=== PATIENT | male | born 1940 | race Caucasian/White ===

== ENCOUNTER 2017-05-26 13:04 | Emergency (ER) | payer BC ==
[2017-05-26 13:12] VITALS: BP 122/74; PULSE 57; TEMP 98.1; BMI 36.5
--- NOTE | 2017-05-26 14:16 | PDOC ---
History of Present Illness - General Chief Complaint: Rash Stated Complaint: RASH Time Seen by Provider: 05/26/17 13:43 History Source: Patient Exam Limitations: No Limitations - History of Present Illness Initial Comments: 05/26/17 14:10 This is a 76yo man with PMH colon CA s/p resection, HTN who presents with generalized itching and rash which worsens overnight for the past 5 days. He states he has tried taking hydrocortisone cream prior to going to sleep with minimal relief. The itching prevents the patient from getting a full nights sleep. He denies fevers. Patient is unsure if he has changed his soaps, shampoos , conditioner, detergents as he shops for what is on sale and is not loyal to any particular brand. Patient is not sure if he has changed anything recently. PMD- Din PMH- see HPI PSH- see HPI Nkda ETOH- rarely Tob- quit>25 years ago illicits- denies Timing/Duration: reports: other (5 days) Past History - Past Medical History Allergies/Adverse Reactions: Allergies Allergy/AdvReac Type Severity Reaction Status Date / Time No Known Allergies Allergy Verified 05/26/17 13:09 Home Medications: Ambulatory Orders Lisinopril [Prinivil] 20 mg PO DAILY 05/20/12 Pravastatin Sodium 40 mg PO DAILY 05/20/12 Aspirin [ASA -] 81 mg PO DAILY 11/10/15 Cholecalciferol (Vitamin D3) [Vitamin D] 1 tab PO ASDIR 11/10/15 [place]-3 Fatty Acids [Fish Oil] 300 mg PO DAILY 11/10/15 Hydrocortisone 2.5% Lotion [Hytone 2.5% Lotion -] 1 applic TP BID #1 bottle 11/10 Anemia: Yes Asthma: No Cancer: Yes (COLON CANCER) Cardiac Disorders: No CVA: No COPD: No CHF: No Dementia: No Diabetes: Yes (BORDERLINE) GI Disorders: Yes Disorders: No HTN: Yes Hypercholesterolemia: Yes Liver Disease: No Seizures: No Thyroid Disease: No - Surgical History Abdominal Surgery: Yes (ABDOMINAL REPAIR{ PIPE THROUGH ABDOMEN}) Appendectomy: No Cardiac Surgery: No Cholecystectomy: No GI Surgery: Yes (resection secondary to cancer) Lung Surgery: No Neurologic Surgery: No Orthopedic Surgery: No - Immunization History Immunization Up to Date: Yes - Psycho/Social/Smoking Cessation Hx Anxiety: No Suicidal Ideation: No Smoking Status: No Smoking History: Former smoker Have you smoked in the past 12 months: No Number of Cigarettes Smoked Daily: 0 If you are a former smoker, when did you quit?: 30 years ago Information on smoking cessation initiated: No Hx Alcohol Use: No Drug/Substance Use Hx: No Substance Use Type: None Hx Substance Use Treatment: No Review of Systems - Review of Systems Able to Perform ROS?: Yes Is the patient limited [place]ymraes proficient: No Constitutional: No: Symptoms Reported HEENTM: No: Symptoms Reported Respiratory: No: Symptoms reported Cardiac (ROS): No: Symptoms Reported ABD/GI: No: Symptoms Reported : No: Symptoms Reported Musculoskeletal: No: Symptoms Reported Integumentary: Yes: See HPI Neurological: No: Symptoms reported *Physical Exam - Vital Signs Last Vital Signs Temp Pulse Resp BP Pulse Ox 98.1 F 57 L 18 122/74 100 05/26/17 13:05/26/17 13:05/26/17 13:05/26/17 13:05/26/17 13:09 - Physical Exam General Appearance: Yes: Appropriately Dressed. No: Apparent Distress HEENT: positive: EOMI, DC, Normal ENT Inspection Neck: positive: Trachea midline, Supple Respiratory/Chest: positive: Lungs Clear, Normal Breath Sounds. negative: Respiratory Distress Cardiovascular: positive: Regular Rhythm, Regular Rate, S1, S2. negative: Edema , JVD, Murmur Gastrointestinal/Abdominal: positive: Normal Bowel Sounds, Soft. negative: Tender, Organomegaly Musculoskeletal: positive: Normal Inspection. negative: CVA Tenderness Extremity: positive: Normal Capillary Refill, Normal Inspection Integumentary: positive: Normal Color, Dry, Warm Neurologic: positive: oxygraph operator II-XII NML intact, Fully Oriented, Alert, Normal Mood/ Affect, Normal Response, Motor Strength 5/5 Medical Decision Making - Medical Decision Making 05/26/17 14:16 A: This is a 76yo man with PMH colon CA s/p resection, HTN who presents with generalized itching and rash which worsens overnight for the past 5 days. He states he has tried taking hydrocortisone cream prior to going to sleep with minimal relief. The itching prevents the patient from getting a full nights sleep. He denies fevers. Patient is unsure if he has changed his soaps, shampoos , conditioner, detergents as he shops for what is on sale and is not loyal to any particular brand. Patient is not sure if he has changed anything recently. No rash seen on exam. At present patient denies itching. Scratch avery are present on upper back. P: Pruritis - hydrocortisone 2.5% ointment bid - benadryl or zyrtec bid *DC/Admit/Observation/Transfer Diagnosis at time of Disposition: Generalized pruritus - Discharge Dispostion Disposition: HOME Condition at time of disposition: Stable Admit: No - Prescriptions Prescriptions: Hydrocortisone 2.5% Lotion [Hytone 2.5% Lotion -] 1 applic TP BID #1 bottle - Referrals Referrals: Aicha Bernabe MD [Primary Care Provider] - - Patient Instructions Additional Instructions: Take benadryl or cetirizine for itching as directed by clinical rn manager's instructions. Pick 1 brand of soap, shampoo, conditioner, laundry detergent and fabric softener and stick with it. Use hydrocortisone cream twice daily as needed for itching. Return to ER for increased itching, pain, rashes, fevers or any other concerns. Thank you for choosing us to provide your emergent health care needs. - Post Discharge Activity
== END 2017-05-26 14:31 | disposition home or self-care (01) ==
LOC: JERFT 13:04
DX: L29.8 Other pruritus (principal); I10 Essential (primary) hypertension; E78.00 Pure hypercholesterolemia, unspecified; E11.9 Type 2 diabetes mellitus without complications; Z85.038 Personal history of other malignant neoplasm of large intestine
CPT/HCPCS: 99281-25

== ENCOUNTER 2017-06-30 23:11 | Emergency (ER) | payer BC ==
--- NOTE | 2017-06-30 23:25 | PDOC ---
History of Present Illness <Edy Webster - Last Filed: 07/01/17 05:50> - History of Present Illness Initial Comments: 76 year old male with PMH of hypertension, hyperlipidemia, and colon cancer (s/ p resection years prior) presenting inebriated by EMS with fall and trauma to the right frontal scalp. He fell from standing and hit his head on the side of a tire in the rear of his house. He recalls the fall. The patient is actively inebriated and is slurring his speech but able to answers questions appropriately. Does not admit to the exact reason for his current inebriation but simply states that he is "going through some things". Per conversation with his son over the phone, Julian has not drank in five years but started recently because of a diagnosis of pancreatic cancer of his son. Denies any LOC or acute pain. According to the patietn he does not know why he is here and would like to go home. 07/01/17 00:39 <Sergey Mcclure - Last Filed: 07/01/17 06:47> - General Stated Complaint: INTOXICATION Time Seen by Provider: 06/30/17 23:16 Past History <Edy Webster - Last Filed: 07/01/17 05:50> - Past Medical History Anemia: Yes Asthma: No Cancer: Yes (COLON CANCER) Cardiac Disorders: No CVA: No COPD: No CHF: No Dementia: No Diabetes: Yes (BORDERLINE) GI Disorders: Yes Disorders: No HTN: Yes Hypercholesterolemia: Yes Liver Disease: No Seizures: No Thyroid Disease: No - Surgical History Abdominal Surgery: Yes (ABDOMINAL REPAIR{ PIPE THROUGH ABDOMEN}) Appendectomy: No Cardiac Surgery: No Cholecystectomy: No GI Surgery: Yes (resection secondary to cancer) Lung Surgery: No Neurologic Surgery: No Orthopedic Surgery: No - Immunization History Immunization Up to Date: Yes - Suicide/Smoking/Psychosocial Hx Smoking Status: No Smoking History: Former smoker Have you smoked in the past 12 months: No Number of Cigarettes Smoked Daily: 0 If you are a former smoker, when did you quit?: 30 years ago Hx Alcohol Use: No Drug/Substance Use Hx: No Substance Use Type: None Hx Substance Use Treatment: No <Sergey Mcclure - Last Filed: 07/01/17 06:47> - Past Medical History Allergies/Adverse Reactions: Allergies Allergy/AdvReac Type Severity Reaction Status Date / Time No Known Allergies Allergy Verified 07/01/17 00:29 Home Medications: Ambulatory Orders Lisinopril [Prinivil] 20 mg PO DAILY 05/20/12 Pravastatin Sodium 40 mg PO DAILY 05/20/12 Aspirin [ASA -] 81 mg PO DAILY 11/10/15 Cholecalciferol (Vitamin D3) [Vitamin D] 1 tab PO ASDIR 11/10/15 [place]-3 Fatty Acids [Fish Oil] 300 mg PO DAILY 11/10/15 Hydrocortisone 2.5% Lotion [Hytone 2.5% Lotion -] 1 applic TP BID #1 bottle 11/10 Review of Systems - Review of Systems Constitutional: No: Chills, Diaphoresis, Fever, Loss of Appetite HEENTM: No: Blurred Vision Respiratory: No: Cough, Shortness of Breath Cardiac (ROS): No: Chest Pain, Palpitations, Chest Tightness ABD/GI: No: Diarrhea, Nausea, Vomiting : No: Burning, Dysuria, Discharge Musculoskeletal: No: Back Pain, Muscle Pain Integumentary: Yes: Bruising, Lesions. No: Change in Color Neurological: No: Headache, Numbness, Paresthesia, Tingling <Sergey Mcclure - Last Filed: 07/01/17 06:47> *Physical Exam - Vital Signs Last Vital Signs Temp Pulse Resp BP Pulse Ox 97.9 F 66 14 109/57 95 07/01/17 00:30 07/01/17 00:30 07/01/17 00:30 07/01/17 00:30 07/01/17 00:30 <Edy Webster - Last Filed: 07/01/17 05:50> - Physical Exam General Appearance: Yes: Nourished, Appropriately Dressed, Disheveled, Alcohol on Breath, Intoxicated. No: Apparent Distress HEENT: positive: EOMI, DC, Normal ENT Inspection, Other (Abrasion over right temporal scalp) Neck: positive: Trachea midline, Normal Thyroid, Supple. negative: Tender, Rigid Respiratory/Chest: positive: Lungs Clear, Normal Breath Sounds. negative: Chest Tender, Respiratory Distress Cardiovascular: positive: Regular Rhythm, Regular Rate, S1, S2. negative: Edema , JVD, Murmur Gastrointestinal/Abdominal: positive: Normal Bowel Sounds, Flat, Soft. negative : Tender Integumentary: positive: Normal Color, Dry, Warm Neurologic: positive: certified addiction counselor II-XII NML intact, Fully Oriented, Alert <Julianna Mcclureекатеринаmanuel - Last Filed: 07/01/17 06:47> Medical Decision Making - Medical Decision Making 76 year old male with inebriation and CT head negative. Has since sobered up. Will DC home. 07/01/17 06:47 <RenArmandosharri - Last Filed: 07/01/17 06:47> *DC/Admit/Observation/Transfer - Discharge Dispostion Admit: No <Edy Webster - Last Filed: 07/01/17 05:50> <RenArmandosharri - Last Filed: 07/01/17 06:47> Diagnosis at time of Disposition: Head injury Qualifiers: Encounter type: initial encounter Qualified Code(s): S09.90XA - Unspecified injury of head, initial encounter Alcohol intoxication Qualifiers: Complication of substance-induced condition: uncomplicated Qualified Code(s): F10.920 - Alcohol use, unspecified with intoxication, uncomplicated - Referrals Referrals: [facility] [Provider Group] - Patient Instructions Printed Discharge Instructions: DI for Closed Head Injury Additional Instructions: Return to the emergency department immediately with ANY new, persistent or worsening symptoms. You MUST call and follow up with your doctor tomorrow for further evaluation of your symptoms. Results were discussed with you. Please make sure your doctor reviews the results of your emergency evaluation. If you had any xrays during your visit, it was read preliminarily by myself, a Radiologist will review it and if there are any additional findings we will call you. Print Language: WOLOF
[2017-07-01 00:31] VITALS: BP 109/57; PULSE 66; TEMP 97.9; BMI 36.0
--- NOTE | 2017-07-01 00:44 | PDOC ---
Attending Attestation - Resident Resident Name: Sergey Mcclure - ED Attending Attestation I have performed the following: I have examined & evaluated the patient, The case was reviewed & discussed with the resident, I agree w/resident's findings & plan, Exceptions are as noted - HPI HPI: 07/01/17 00:57 76y M presents s/p fall and intoxication. pt was BIBEMS s/p fall from standing, strking his head, w/o LOC, pt without complaints but does smell of alcohol with slurred speech. pt with nos igns of trauma to his head, there is some abrasions on his arm without focal tenderness. will obtain ct head due to hx of etoh intoxication, will observe until no longer intoxicated - Physicial Exam PE: 07/01/17 00:59 see above - Medical Decision Making 07/01/17 00:59 see above
== END 2017-07-01 06:54 | disposition home or self-care (01) ==
LOC: JER 23:11
DX: F10.920 Alcohol use, unspecified with intoxication, uncomplicated (principal); Z87.891 Personal history of nicotine dependence; J45.909 Unspecified asthma, uncomplicated; I10 Essential (primary) hypertension; E78.00 Pure hypercholesterolemia, unspecified
CPT/HCPCS: 70450-TC; 99281-25

== ENCOUNTER 2018-07-01 19:04 | Emergency (ER) | payer BC ==
--- NOTE | 2018-07-01 19:14 | PDOC ---
Rapid Medical Evaluation Time Seen by Provider: 07/01/18 19:07 Medical Evaluation: Allergies Allergy/AdvReac Type Severity Reaction Status Date / Time No Known Allergies Allergy Verified 07/01/17 00:29 07/01/18 19:07 I have performed a brief in-person evaluation of this patient. The patient presents with a chief complaint of: injury to right foot. Patient reports accidentally stepping on a pedro nail. Unknown tetanus status Pertinent physical exam findings are: NAD even and unlabored breathing I have ordered the following: boostrix The patient will proceed to the Ed for further evaluation. Discharge Disposition - Referrals Referrals: Aicha Bernabe MD [Primary Care Provider] - - Patient Instructions - Post Discharge Activity
[2018-07-01] MEDS ORDERED: DIPHTH,PERTUSS(ACELL),TET 0.5 ML DISP.SYRIN IM ONE (19:16)
[2018-07-01 19:19] VITALS: BP 118/64; PULSE 76; TEMP 97.6; BMI 37.5
--- NOTE | 2018-07-01 20:03 | PDOC ---
History of Present Illness - General Chief Complaint: Puncture Wound Stated Complaint: RIGHT FOOT INJURY Time Seen by Provider: 07/01/18 19:07 - History of Present Illness Initial Comments: 77-year-old male with a past medical history significant for dyslipidemia and hypertension presents for evaluation after stepping on a pedro nail in his garage. He states he was wearing a sneaker. The nail penetrated sneaker and sock and made a small puncture wound in the bottom of his right foot he has no complaints other than localized pain. He is not current on tetanus. 07/01/18 20:01 Past History - Past Medical History Allergies/Adverse Reactions: Allergies Allergy/AdvReac Type Severity Reaction Status Date / Time No Known Allergies Allergy Verified 07/01/17 00:29 Home Medications: Ambulatory Orders Lisinopril [Prinivil] 20 mg PO DAILY 05/20/12 Pravastatin Sodium 40 mg PO DAILY 05/20/12 Aspirin [ASA -] 81 mg PO DAILY 11/10/15 Cholecalciferol (Vitamin D3) [Vitamin D] 1 tab PO ASDIR 11/10/15 [place]-3 Fatty Acids [Fish Oil] 300 mg PO DAILY 11/10/15 Ciprofloxacin HCl [Cipro] 500 mg PO BID #14 tablet 07/01/18 Anemia: Yes Asthma: No Cancer: Yes (COLON CANCER) Cardiac Disorders: No CVA: No COPD: No CHF: No Dementia: No Diabetes: Yes (BORDERLINE) GI Disorders: Yes Disorders: No HTN: Yes Hypercholesterolemia: Yes Liver Disease: No Seizures: No Thyroid Disease: No - Surgical History Abdominal Surgery: Yes (ABDOMINAL REPAIR{ PIPE THROUGH ABDOMEN}) Appendectomy: No Cardiac Surgery: No Cholecystectomy: No GI Surgery: Yes (resection secondary to cancer) Lung Surgery: No Neurologic Surgery: No Orthopedic Surgery: No - Immunization History Immunization Up to Date: Yes - Suicide/Smoking/Psychosocial Hx Smoking Status: No Smoking History: Never smoked Have you smoked in the past 12 months: No Number of Cigarettes Smoked Daily: 0 If you are a former smoker, when did you quit?: 30 years ago Information on smoking cessation initiated: No Hx Alcohol Use: No Drug/Substance Use Hx: No Substance Use Type: None Hx Substance Use Treatment: No Review of Systems - Review of Systems Musculoskeletal: Yes: See HPI All Other Systems: Reviewed and Negative *Physical Exam - Vital Signs Last Vital Signs Temp Pulse Resp BP Pulse Ox 97.6 F 76 20 118/64 100 07/01/18 19:14 07/01/18 19:14 07/01/18 19:14 07/01/18 19:14 07/01/18 19:14 - Physical Exam Comments: Right foot skin color and temperature are normal range of motion is full and nonpainful in all toes. There is a small focal puncture wound on the plantar aspect of the right foot at the MTPJ of the big toe there are no gross sensorimotor deficits. 07/01/18 20:02 *DC/Admit/Observation/Transfer Diagnosis at time of Disposition: Puncture wound of foot - Discharge Dispostion Disposition: HOME Condition at time of disposition: Stable Decision to Admit order: No - Prescriptions Prescriptions: Ciprofloxacin HCl [Cipro] 500 mg PO BID #14 tablet - Referrals Referrals: Aicha Bernabe MD [Primary Care Provider] - Fei Regalado MD [Staff Physician] - - Patient Instructions Printed Discharge Instructions: DI for Puncture Wound Additional Instructions: Please take the antibiotics as directed and finish the entire course. Your tetanus was updated today. Please return to the emergency room she develop any pain redness swelling or drainage from the area of the puncture. Follow-up with orthopedic surgery in 1-2 days for further evaluation and treatment options. - Post Discharge Activity
== END 2018-07-01 20:03 | disposition home or self-care (01) ==
LOC: JERFT 19:04
PROC: 3E0234Z Introduction of Serum, Toxoid and Vaccine into Muscle, Percutaneous Approach (ICD-10-PCS; principal; 2018-07-01)
DX: S91.331A Puncture wound without foreign body, right foot, initial encounter (principal); W45.0XXA Nail entering through skin, initial encounter; Y93.89 Activity, other specified; Y92.015 Private garage of single-family (private) house as the place of occurrence of the external cause; Y99.8 Other external cause status; I10 Essential (primary) hypertension; E78.5 Hyperlipidemia, unspecified; E11.9 Type 2 diabetes mellitus without complications; Z85.038 Personal history of other malignant neoplasm of large intestine
CPT/HCPCS: 90471; 90715; 99281-25

== ENCOUNTER 2019-04-17 10:18 | Day surgery (SDC) | payer BC ==
[2019-04-16 16:22] VITALS: BMI 36.0
[2019-04-17 12:59] VITALS: TEMP 98
[2019-04-17 13:41] LABS: BASO % 0.5 % (0-2.0); EOS % 3.6 % (0-4.5); HEMATOCRIT 38.1 % (35.4-49); HEMOGLOBIN 12.6 GM/dL (11.7-16.9); MCH 31.2 pg (25.7-33.7); MEAN CELL VOLUME 94.4 fl (80-96); MEAN PLT VOLUME 8.9 fl (7.5-11.1); MONO % 7.2 % (3.8-10.2); NEUT % 63.7 % (42.8-82.8); PLATELET COUNT 186 K/MM3 (134-434); RBC 4.04 M/mm3 (4.00-5.60); RDW 14.4 % (11.9-15.9); WHITE BLOOD COUNT 6.3 K/mm3 (4.0-10.0)
[2019-04-17 13:58] VITALS: BP 119/72; PULSE 66
== END 2019-04-17 13:45 | disposition home or self-care (01) ==
LOC: JASU-ENDO 10:18
PROVIDERS: ATTEND Internal Medicine Gastroenterology
PROC: 0DJD8ZZ Inspection of Lower Intestinal Tract, Via Natural or Artificial Opening Endoscopic (ICD-10-PCS; principal; 2019-04-17 11:00)
DX: Z12.11 Encounter for screening for malignant neoplasm of colon (principal); Z85.038 Personal history of other malignant neoplasm of large intestine; K64.8 Other hemorrhoids; Z98.0 Intestinal bypass and anastomosis status; I10 Essential (primary) hypertension; E11.9 Type 2 diabetes mellitus without complications; D64.9 Anemia, unspecified; E66.01 Morbid (severe) obesity due to excess calories
CPT/HCPCS: 36415; 82728; 83540; 83550; 85025

== ENCOUNTER 2019-04-30 18:57 | Observation (INO) | payer BC ==
[2019-04-30] MEDS ORDERED: SODIUM CHLORIDE 1,000 ML IV STA (19:08)
--- NOTE | 2019-04-30 19:08 | PDOC ---
Rapid Medical Evaluation Time Seen by Provider: 04/30/19 19:04 Medical Evaluation: Allergies Allergy/AdvReac Type Severity Reaction Status Date / Time No Known Allergies Allergy Verified 07/01/17 00:29 04/30/19 19:04 I have performed a brief in-person evaluation of this patient. The patient presents with a chief complaint of: weakness with nausea and vomiting Pertinent physical exam findings: HR-48. AF. Diaphoretic. Pale. I have ordered the following: cardiac w/u The patient will proceed to the ED for further evaluation. Discharge Disposition - Diagnosis Weakness - Referrals - Patient Instructions - Post Discharge Activity
[2019-04-30 19:10] VITALS: BMI 35.0
--- NOTE | 2019-04-30 19:38 | PDOC ---
History of Present Illness - General Chief Complaint: Blood Pressure Problem Stated Complaint: WEAKNESS/NAUSEA Time Seen by Provider: 04/30/19 19:04 Past History - Past Medical History Allergies/Adverse Reactions: Allergies Allergy/AdvReac Type Severity Reaction Status Date / Time No Known Allergies Allergy Verified 04/30/19 19:31 Home Medications: Ambulatory Orders Lisinopril [Prinivil] 20 mg PO DAILY 05/20/12 Pravastatin Sodium 40 mg PO DAILY 05/20/12 Aspirin [ASA -] 81 mg PO DAILY 11/10/15 Cholecalciferol (Vitamin D3) [Vitamin D3] 1 tab PO ASDIR 11/10/15 [place]-3 Fatty Acids [Fish Oil] 300 mg PO DAILY 11/10/15 Anemia: Yes Asthma: No Cancer: Yes (COLON CANCER) Cardiac Disorders: No CVA: No COPD: No CHF: No Dementia: No Diabetes: Yes (BORDERLINE) GI Disorders: Yes Disorders: No HTN: Yes Hypercholesterolemia: Yes Liver Disease: No Seizures: No Thyroid Disease: No - Surgical History Abdominal Surgery: Yes (ABDOMINAL REPAIR{ PIPE THROUGH ABDOMEN}) Appendectomy: No Cardiac Surgery: No Cholecystectomy: No GI Surgery: Yes (resection secondary to cancer) Lung Surgery: No Neurologic Surgery: No Orthopedic Surgery: No - Immunization History Immunization Up to Date: Yes - Suicide/Smoking/Psychosocial Hx Smoking Status: No Smoking History: Never smoked Have you smoked in the past 12 months: No Number of Cigarettes Smoked Daily: 0 If you are a former smoker, when did you quit?: 30 years ago Hx Alcohol Use: No Drug/Substance Use Hx: No Substance Use Type: None Hx Substance Use Treatment: No *Physical Exam - Vital Signs Last Vital Signs Temp Pulse Resp BP Pulse Ox 97.3 F L 50 L 18 54/27 L 96 04/30/19 19:05 04/30/19 19:05 04/30/19 19:05 04/30/19 19:05 04/30/19 19:05 ED Treatment Course - LABORATORY CBC & Chemistry Diagram: 04/30/19 19:23 04/30/19 19:23 - RADIOLOGY Radiology Studies Ordered: Category Date Time Status CHEST X-RAY PORTABLE* [RAD] Stat Radiology 04/30/19 19:36 Ordered Medical Decision Making - Medical Decision Making HPI: 78yo M with PMH of HTN, colon CA s/p resection presenting with weakness that started this afternoon. 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 He became diaphoretic, nauseous and had two or three loose stools. Patient felt as if he might pass out. Because he was feeling so poorly he took some extra baby aspirin (about 5 tablets) after which he had some abdominal discomfort. Patient presented to our ER hypotensive and bradycardic. Denies fevers, chills, chest pain, or shortness of breath. PCP: Aicha Bernabe ROS: Constitutional: no fever, no chills HEENT: no throat pain, no dysphagia Cardiovascular: no chest pain, no palpitations Respiratory: no cough, no shortness of breath Gastrointestinal: +diarrhea, +nausea Genitourinary: no dysuria, no hematuria Musculoskeletal: no myalgia, no arthralgia Skin: no rash, no itching Neurologic: +lightheaded, +weakness PE: General: Awake, alert, and fully oriented, in no acute distress Head: No signs of trauma Eyes: EOMI, sclera anicteric ENT: Moist mucus membranes Neck: Normal ROM, supple Lungs: Lungs clear, Normal breath sounds Cardio: Regular rhythm, S1 and S2 present Abdomen: Soft, nontender. No guarding, no rebound, no masses Extremities: Normal range of motion, Faint distal pulses present SKIN: Warm, Dry, normal turgor Neurologic: Cranial nerves II through XII grossly intact. Normal speech ED Courses/MDM: DDX including but not limited to dehydration, infection, AAA, PE, ACS, anemia, metabolic derangement Initial Vital Signs Temp Pulse Resp BP Pulse Ox 97.3 F L 50 L 18 54/27 L 96 04/30/19 19:05 04/30/19 19:05 04/30/19 19:05 04/30/19 19:05 04/30/19 19:05 Patient presented to the ER with hypotension and bradycardia Medical resuscitation team was assembled and two 18 gauge IVs were placed Bedside ultrasound without acute abnormality: non-dilated aorta, no pericardial effusion, grossly normal cardiac function without enlarged RV EKG: rate 56, QTc 401, sinus bradycardia Latest BP is 95 systolic patient feeling better 04/30/19 19:59 CXR as read by radiology: "Since prior chest x-ray dated 03/18/2016, the cardiac silhouette remains within normal limits in size. There is a questionable round opacity in the left mid to lower lung, along the left lateral margin of the heart. The rest of the lung is clear. Mediastinum and visualized osseous structures appear intact Impression: Questionable round opacity in the left mid to lower lung, laterally for which further evaluation is needed. The rest of the lung is clear." CBC WBC 12.4 K/mm3 (4.0-10.0) H 04/30/19 19:23 RBC 4.36 M/mm3 (4.00-5.60) 04/30/19 19:23 Hgb 13.4 GM/dL (11.7-16.9) 04/30/19 19:23 Hct 41.3 % (35.4-49) 04/30/19 19:23 MCV 94.9 fl (80-96) 04/30/19 19:23 MCH 30.7 pg (25.7-33.7) 04/30/19 19: MCHC 32.4 g/dl (32.0-35.9) 04/30/19 19:23 RDW 14.0 % (11.9-15.9) 04/30/19 19:23 Plt Count 261 K/MM3 (134-434) D 04/30/19 19:23 MPV 9.1 fl (7.5-11.1) 04/30/19 19:23 Absolute Neuts (auto) 7.3 K/mm3 (1.5-8.0) 04/30/19 19:23 Neutrophils % 59.0 % (42.8-82.8) 04/30/19 19:23 Lymphocytes % 31.5 % (8-40) D 04/30/19 19:23 Monocytes % 6.5 % (3.8-10.2) 04/30/19 19:23 Eosinophils % 2.2 % (0-4.5) 04/30/19 19:23 Basophils % 0.8 % (0-2.0) 04/30/19 19:23 Nucleated RBC % 0 % (0-0) 04/30/19 19:23 Leukocytosis No anemia Pending labs 04/30/19 20:03 CMP Sodium 137 mmol/L (136-145) 04/30/19 19:23 Potassium 4.1 mmol/L (3.5-5.1) 04/30/19 19:23 Chloride 102 mmol/L (98-107) 04/30/19 19:23 Carbon Dioxide 28 mmol/L (21-32) 04/30/19 19:23 Anion Gap 7 MMOL/L (8-16) L 04/30/19 19:23 BUN 28.6 mg/dL (7-18) H 04/30/19 19:23 Creatinine 1.5 mg/dL (0.55-1.3) H 04/30/19 19:23 Est GFR (CKD-EPI)AfAm 50.95 04/30/19 19:23 Est GFR (CKD-EPI)NonAf 43.96 04/30/19 19:23 Random Glucose 172 mg/dL (74-106) H 04/30/19 19:23 Calcium 9.1 mg/dL (8.5-10.1) 04/30/19 19:23 Magnesium 2.8 mg/dL (1.8-2.4) H 04/30/19 19:23 Total Bilirubin 0.6 mg/dL (0.2-1) 04/30/19 19:23 AST 25 U/L (15-37) 04/30/19 19:23 ALT 28 U/L (13-61) 04/30/19 19:23 Alkaline Phosphatase 67 U/L (45-117) 04/30/19 19:23 Creatine Kinase 183 U/L (26-308) 04/30/19 19:23 Creatine Kinase Index 1.2 % (0.0-5.0) 04/30/19 19:23 CK-MB (CK-2) 2.2 ng/mL (0.5-3.6) 04/30/19 19:23 Troponin I < 0.02 ng/ml (0.00-0.05) 04/30/19 19:23 B-Natriuretic Peptide 303.4 pg/ml (5-450) 04/30/19 19:23 Total Protein 7.0 g/dl (6.4-8.2) 04/30/19 19:23 Albumin 3.7 g/dl (3.4-5.0) 04/30/19 19:23 Electrolytes unremarkable BUN and Cr elevated FOBT negative TSH elevated at 6 Latest BP 102/69 04/30/19 20:24 Plan for admission for near-syncope, SADE, hypotension 04/30/19 20:[address] Kelly who accepted patient for telemetry observation under Dr. Ball 04/30/19 20:55 *DC/Admit/Observation/Transfer Diagnosis at time of Disposition: Weakness, SADE (acute kidney injury), Elevated TSH, Near syncope - Discharge Dispostion Condition at time of disposition: Guarded Decision to Admit order: Yes - Referrals - Patient Instructions - Post Discharge Activity
[2019-04-30 19:48] LABS: BASO % 0.8 % (0-2.0); EOS % 2.2 % (0-4.5); HEMATOCRIT 41.3 % (35.4-49); HEMOGLOBIN 13.4 GM/dL (11.7-16.9); LYMPH % 31.5 % (8-40); MCH 30.7 pg (25.7-33.7); MCHC 32.4 g/dl (32.0-35.9); MEAN CELL VOLUME 94.9 fl (80-96); MEAN PLT VOLUME 9.1 fl (7.5-11.1); MONO % 6.5 % (3.8-10.2); PLATELET COUNT 261 K/MM3 (134-434); RBC 4.36 M/mm3 (4.00-5.60); WHITE BLOOD COUNT 12.4 K/mm3 (4.0-10.0)
[2019-04-30 20:08] LABS: ALBUMIN 3.7 g/dl (3.4-5.0); ALK PHOS 67 U/L (45-117); ANION GAP 7 MMOL/L (8-16); BILIRUBIN,TOTAL 0.6 mg/dL (0.2-1); BLOOD UREA NITROGEN 28.6 mg/dL (7-18); CALCIUM 9.1 mg/dL (8.5-10.1); CHLORIDE 102 mmol/L (98-107); CO2 28 mmol/L (21-32); CREATININE 1.5 mg/dL (0.55-1.3); GLUCOSE,RANDOM 172 mg/dL (74-106); MAGNESIUM 2.8 mg/dL (1.8-2.4); POTASSIUM 4.1 mmol/L (3.5-5.1); SGOT/AST 25 U/L (15-37); SGPT/ALT 28 U/L (13-61); SODIUM 137 mmol/L (136-145)
[2019-04-30 20:11] LABS: INR 1.03 (0.83-1.09); PROTHROMBIN TIME (PATIENT) 12.2 SEC (9.7-13.0)
[2019-04-30] MEDS ORDERED: ACETAMINOPHEN 325 MG TABLET (FP) PO PRN (21:35)
[2019-04-30] MEDS ORDERED: SODIUM CHLORIDE 1,000 ML IV SCH (21:45)
--- NOTE | 2019-04-30 22:08 | HP ---
CHIEF COMPLAINT: Near Syncope PCP: Dr. Otoole HISTORY OF PRESENT ILLNESS: 78 y/o M, pmh of HTN and Colon Ca s/p resection, presents to the ED s/p near syncope, hypotension and diarrhea. 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 His symptoms worsened as the day progressed so his family brought him to the ED. He reports no similar previous episodes. He reports the diarrhea was semisolid but has improved since. When he arrived in the ED, he was hypotensive and bradycardiac, during which the ED bolused him w/ fluids and brought his bp back up. Currently pt is stable and has no further c/o. Admits to nausea, diarrhea and weakness. Denies fevers, chills, sob, chest pain, urinary incontinence, numbness, tingling. ER course was notable for: (1)1 bolus of fluids given (2)CXR- round opacity present on the left lateral lung, no other acute findings (3)TSH- elevated Recent Travel: denies PAST MEDICAL HISTORY: HTN, Colon cancer s/p resection- remission, Hyperlipidemia PAST SURGICAL HISTORY: forehead cyst removal, back cyst removal, colon resection Social History: Smoking: former smoker- quit long time ago Alcohol:occasionally Drugs: denies Family History: Father- Heart disease Brother and son- of pancreatic cancer Allergies No Known Allergies Allergy (Verified 04/30/19 19:31) HOME MEDICATIONS: Home Medications Medication Instructions Recorded Lisinopril [Prinivil] 20 mg PO DAILY 05/20/12 Pravastatin Sodium 40 mg PO DAILY 05/20/12 Aspirin [ASA -] 81 mg PO DAILY 11/10/15 Cholecalciferol (Vitamin D3) 1 tab PO ASDIR 11/10/15 [Vitamin D3] [place]-3 Fatty Acids [Fish Oil] 300 mg PO DAILY 11/10/15 REVIEW OF SYSTEMS CONSTITUTIONAL: Admits: generalized weakness, malaise, loss 20 Ibs in a year- diet controlled Absent: fever, chills, diaphoresis, loss of appetite, CARDIOVASCULAR: Absent: chest pain, syncope, palpitations, irregular heart rate, lightheadedness , peripheral edema RESPIRATORY: Absent: cough, shortness of breath, dyspnea with exertion, orthopnea, wheezing, stridor, hemoptysis GASTROINTESTINAL: Admits: nausea, diarrhea Absent: abdominal pain, abdominal distension, vomiting, constipation, melena, hematochezia MUSCULOSKELETAL: Absent: myalgia, arthralgia, joint swelling, back pain, neck pain ENDOCRINE: Absent: unexplained weight gain, unexplained weight loss, heat intolerance, cold intolerance NEUROLOGIC: Absent: headache, focal weakness or paresthesias, dizziness, unsteady gait, seizure, mental status changes, bladder or bowel incontinence PSYCHIATRIC: Absent: anxiety, depression, PHYSICAL EXAMINATION Vital Signs - 24 hr Last Vital Signs Temp Pulse Resp BP Pulse Ox 97.6 F 59 L 15 101/65 100 04/30/19 20:15 04/30/19 20:15 04/30/19 20:15 04/30/19 20:15 04/30/19 20:15 GENERAL: Awake, alert, and fully oriented, in no acute distress. EYES: Pupils equal, round and reactive to light, extraocular movements intact, NECK: supple without lymphadenopathy, no thyroid fullness, JVD, or masses. LUNGS: Breath sounds equal, clear to auscultation bilaterally. No wheezes, and no crackles. HEART: Regular rate and rhythm, normal S1 and S2 without murmur, rub or gallop. ABDOMEN: Soft, nontender, not distended, normoactive bowel sounds, no guarding, no rebound, no masses. No hepatomegaly or splenomegaly. NEUROLOGICAL: Cranial nerves II-XII intact. Normal speech. Normal gait. PSYCHIATRIC: Cooperative. Good eye contact. Appropriate mood and affect. Laboratory Results - last 24 hr CBC, BMP 04/30/19 19:23 04/30/19 19:23 TSH: 6.0 Mg 2.8 1st- Trop neg ASSESSMENT/PLAN: #Near syncope Orthostatics - Supine 118/68, Seated 97/65, Standing 114/67 Echo ordered- r/o cardiogenic syncope- pending Admission to Tele-Obs Carotid U/S- pending r/p EKG-pending r/p Trop-pending r/p Lactate-pending #SADE BUN/Cre- 28.6/1.5 Fluids- NS 100m/s UA ordered- pending #Hypotension Hold HTN meds monitor BP #Possible Lower Lung mass on CXR F/u CT outpt #High TSH cannot r/o Hypothyroidism TSH 6.0 T3/T4 ordered- pending- f/u in the am #Nausea Zofran Ordered #Hyperlipidemia Continue home meds- Pravastatin #DVT ppx Heparin 5000 SQ Q8H FEN: Sodium controlled diet Dispo: Monitor BP, f/u on Echo and U/S, symptomatic management Visit type - Emergency Visit Emergency Visit: Yes ED Registration Date: 04/30/19 Care time: The patient presented to the Emergency Department on the above date and was hospitalized for further evaluation of their emergent condition. - New Patient This patient is new to me today: Yes Date on this admission: 05/01/19 - Critical Care Critical Care patient: No ATTENDING PHYSICIAN STATEMENT I saw and evaluated the patient. I reviewed the resident's note and discussed the case with the resident. I agree with the resident's findings and plan as documented. SUBJECTIVE: OBJECTIVE: ASSESSMENT AND PLAN:
[2019-04-30] MEDS ORDERED: ONDANSETRON 4 MG/2 ML VIAL IVPUSH ONE (22:09)
[2019-04-30] MEDS ORDERED: ONDANSETRON 4 MG/2 ML VIAL ONE (22:20)
--- NOTE | 2019-04-30 22:25 | PN ---
Teaching Attending Note Name of Resident: Bright Llamas ATTENDING PHYSICIAN STATEMENT I saw and evaluated the patient. I reviewed the resident's note and discussed the case with the resident. I agree with the resident's findings and plan as documented. Seen and examined; please see resident note for further historical information. Briefly, patient presents for presyncope from home. No current complaints. No LOC. No seizure activity, chest pain, SOB. VS, labs, imaging reviewed NAD, AAO, resting in bed NC AT EOMI PERRLA RRR s1/2 Lungs CTAB, w/ sym exp NT ND +BS CN2-12 wnl, no fnd Normal mood, appropriate behavior EKG reviewed CXR reviewed On tele ASSESSMENT AND PLAN: # Presyncope -OSVS (was prehydrated so less reliable), echo, carotids, tele. No high degree AV block. Cameron resolved. +chronotropic response. # Hypotension, bradycardia, hypothermia -Resolved in ER; observe. Could be vv syncope # SADE -on KARLA and likely prerenal with low BP (if OSVS+ less likely prolonged hypotension so less change ATN) # Leukocytosis -Reactive? Observe # Elevated lactate -Likely 2/2 hypoperfusion; r/o any occult sepsis
[2019-04-30 22:32] LABS: URINE APPEARANCE CLEAR; URINE BILIRUBIN NEGATIVE (NEGATIVE); URINE COLOR YELLOW; URINE GLUCOSE (UA) NEGATIVE (NEGATIVE); URINE KETONE 1+ (NEGATIVE); URINE LEUK ESTERASE NEGATIVE (NEGATIVE); URINE NITRITE NEGATIVE (NEGATIVE); URINE PROTEIN NEGATIVE (NEGATIVE); URINE UROBILINOGEN 0.2 mg/dL (0.2-1.0)
--- NOTE | 2019-04-30 23:37 | PDOC ---
Documentation entered by David Alarcon SCRIBE, acting as scribe for Pepper Nielsen DO. Pepper Nielsen DO: This documentation has been prepared by the Dorian harding Aiswarya, SCRIBE, under my direction and personally reviewed by me in its entirety. I confirm that the documentation accurately reflects all work, treatment, procedures, and medical decision making performed by me. Attending Attestation - Resident Resident Name: Germaine Cedillo - ED Attending Attestation I have performed the following: I have examined & evaluated the patient, The case was reviewed & discussed with the resident, I agree w/resident's findings & plan - HPI HPI: 04/30/19 22:34 The patient is a 78 year old male, with a significant PMH of HTN and colon cancer, who presents to the emergency department with generalized weakness that occurred today. 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 The patient denies chest pain , shortness of breath, headache and dizziness.Denies fever, chills, vomiting, diarrhea and constipation. Allergies: NKDA Past surgical history: abdominal repair, colon resection secondary to cancer Social history: None reported PCP: Florecita Holcomb - Physicial Exam PE: 04/30/19 22:35 Agree with residents PE. RECTAL EXAM -no gross blood found - Medical Decision Making 04/30/19 23:35 78-year-old male with nausea and hypotension Labs suggest volume depletion and likely undiagnosed hypothyroidism Patient's blood pressure responded to 1 L of IV fluid normal saline Patient denied pain complaints and remained awake and alert despite decreased blood pressure on arrival Plan for admission to medical service for further evaluation
[2019-05-01 06:05] LABS: BASO % 0.4 % (0-2.0); EOS % 1.5 % (0-4.5); HEMATOCRIT 36.1 % (35.4-49); HEMOGLOBIN 12.2 GM/dL (11.7-16.9); LYMPH % 27.1 % (8-40); MCH 31.4 pg (25.7-33.7); MCHC 33.8 g/dl (32.0-35.9); MEAN CELL VOLUME 92.9 fl (80-96); MEAN PLT VOLUME 8.6 fl (7.5-11.1); MONO % 6.1 % (3.8-10.2); NEUT % 64.9 % (42.8-82.8); PLATELET COUNT 187 K/MM3 (134-434); RBC 3.88 M/mm3 (4.00-5.60); RDW 14.1 % (11.9-15.9); WHITE BLOOD COUNT 7.5 K/mm3 (4.0-10.0)
[2019-05-01] MEDS ORDERED: HEPARIN NA (PORCINE) 5,000 UNITS/ML 1ML VIAL ONE ×2 (06:34→14:36)
[2019-05-01] MEDS: HEPARIN NA (PORCINE) 5,000 UNITS/ML 1ML VIAL SQ SCH ×2 (06:43→14:43)
[2019-05-01 06:45] LABS: ALBUMIN 3.1 g/dl (3.4-5.0); BILIRUBIN,TOTAL 0.7 mg/dL (0.2-1); BLOOD UREA NITROGEN 21.5 mg/dL (7-18); CALCIUM 8.2 mg/dL (8.5-10.1); CREATININE 0.8 mg/dL (0.55-1.3); POTASSIUM 4.3 mmol/L (3.5-5.1); TOT PROT 6.2 g/dl (6.4-8.2)
--- NOTE | 2019-05-01 11:58 | ECHO ---
Name: HANANE HERRERA Exam:Adult Echocardiogram Study Date: 05/01/2019 07:32 AM Age: 78 yrs Reason For Study: SYNCOPE Height: 67 in Weight: 224 lb BSA: 2.1 m2 MMode/2D Measurements & Calculations IVSd: 1.1 cm Ao root diam: 2.5 cm LVIDd: 5.3 cm LA dimension: 2.9 cm LVIDs: 3.9 cm LVPWd: 1.0 cm EDV(Teich): 135.8 ml LVOT diam: 2.0 cm ESV(Teich): 64.8 ml LAV (MOD-bp): 78.0 ml Doppler Measurements & Calculations MV E max perry: 96.5 cm/sec Ao V2 max: 158.8 cm/sec MV A max perry: 50.0 cm/sec Ao max P.1 mmHg MV E/A: 1.9 MV dec time: 0.20 sec LESLY(V,D): 2.1 cm2 LV V1 max P.8 mmHg TR max perry: 203.6 cm/sec LV V1 max: 110.1 cm/sec TR max P.6 mmHg PA V2 max: 114.0 cm/sec Med Peak E' Perry: 9.1 cm/sec PA max P.2 mmHg Med E/e': 10.6 Lat Peak E' Perry: 9.2 cm/sec Lat E/e': 10.4 PI Vmax: 93.7 cm/sec Procedure A complete two-dimensional transthoracic echocardiogram was performed (2D, M-mode, Doppler and color flow Doppler). Left Ventricle The left ventricular size, thickness and function are normal. The left ventricular ejection fraction is normal. Ejection Fraction = 55-60%. The left ventricular wall motion is normal. Right Ventricle The right ventricle is normal in size and function. Atria Normal left and right atrial size and function. Mitral Valve There is no mitral regurgitation noted. Tricuspid Valve No tricuspid regurgitation. There was insufficient TR detected to calculate RV systolic pressure. Aortic Valve No hemodynamically significant valvular aortic stenosis. No aortic regurgitation is present. Pulmonic Valve Trace pulmonic valvular regurgitation. Great Vessels The aortic root is normal size. Pericardium/Pleura There is no pericardial effusion. Interpretation Summary The left ventricular size, thickness and function are normal The right ventricle is normal in size and function. Trace pulmonic valvular regurgitation. MD Jay Carranza 05/01/2019 11:58 AM
--- NOTE | 2019-05-01 12:59 | PN ---
Teaching Attending Note Name of Resident: Glo Fisher ATTENDING PHYSICIAN STATEMENT I saw and evaluated the patient. I reviewed the resident's note and discussed the case with the resident. I agree with the resident's findings and plan as documented. SUBJECTIVE:asymptomatic. states he felt dizzy and weak like he was gonna pass out after carrying heavy items outside. has 20lb intentional weight loss over the past few months as part of dieting and exercising which was triggered after the loss of his son. denies CP, SOB, fever, chills, LOC, dizzy, N/V/C/D normal stress test a year ago OBJECTIVE: Last Vital Signs Temp Pulse Resp BP Pulse Ox 97.9 F 65 18 108/59 L 97 05/01/19 11:22 05/01/19 11:22 05/01/19 11:22 05/01/19 11:22 05/01/19 11:22 General NAD HEENT no nystagmus, no carotid bruit CV S1 S2 RRR no murmur/rub/gallop Lungs CTA B/L no wheezing/rales/rhonchi ASSESSMENT AND PLAN: 78yo M with PMH HTN, Colon ca s/p resection (no chemo or Rtx) presented after near syncopal episode and found to have lung mass 1. Near Syncope- likely vasovagal. +orthostatics. received just over 1L. BP has remained low which could be due to over medicated or due to him being dehydrated. would cont to hold acei on discharge. will repeat orthostatics. carotid u/s and echo are normal. had normal stress test a year ago, trop neg x2 2. Asymptomatic bradycardia-sinus yg on ekg resting HR 66 with light activity increased to 90bpm at bedside 3. SADE- due to dehydration in combination with acei. now resolved 4. Lumg mass- seen on CXR. has extensive family history for malignancy and cancer himself. hx of smoking. check CT chest 5. Elevated TSH- does not have symptoms consistent with hypothyroid. T3 normal. would have repeat by PMD 6. colon cancer- outpatient follow up 7. can likely d/c home today after CT is completed. educated on medication change and need for follow up with PMD, Dr Bernabe next week for repeat of BP and labs
--- NOTE | 2019-05-01 13:55 | EKG ---
Test Reason : Blood Pressure : / mmHG Vent. Rate : 056 BPM Atrial Rate : 056 BPM P-R Int : 192 ms QRS Dur : 104 ms QT Int : 416 ms P-R-T Axes : 004 -22 023 degrees QTc Int : 401 ms SINUS BRADYCARDIA OTHERWISE NORMAL ECG WHEN COMPARED WITH ECG OF 18-MAR-2016 06:46, NO SIGNIFICANT CHANGE WAS FOUND Confirmed by BELIA VEGA MD ([id number]) on 05/01/2019 1:55:35 PM Referred By: Confirmed By:BELIA VEGA MD
[2019-05-01 16:29] VITALS: BP 136/91; PULSE 61; TEMP 98.2
--- NOTE | 2019-05-02 16:34 | DS ---
Physical Exam: SUBJECTIVE: Patient seen and examined. Feeling well, denies dizziness/ CP/ SOB/ fatigue/ myalgias. OBJECTIVE: Vital Signs Period Temp Pulse Resp BP Sys/Hardy Pulse Ox Last 24 Hr 98.2 F 61 18 136/91 98 PHYSICAL EXAM GENERAL: The patient is awake, alert, and fully oriented, in no acute distress. NECK: No carotid bruits noted. LUNGS: Breath sounds equal, clear to auscultation bilaterally, no wheezes, no crackles, no accessory muscle use. HEART: Regular rate and rhythm, S1, S2 without murmur, rub or gallop. ABDOMEN: Soft, nontender, nondistended, normoactive bowel sounds, no guarding, no masses. EXTREMITIES: 2+ pulses, warm, well-perfused, no edema. SKIN: Warm, dry, normal turgor, no rashes or lesions noted. LABS Laboratory Last Values WBC 7.5 K/mm3 (4.0-10.0) 05/01/19 05:40 RBC 3.88 M/mm3 (4.00-5.60) L 05/01/19 05:40 Hgb 12.2 GM/dL (11.7-16.9) 05/01/19 05:40 Hct 36.1 % (35.4-49) 05/01/19 05:40 MCV 92.9 fl (80-96) 05/01/19 05:40 MCH 31.4 pg (25.7-33.7) 05/01/19 05:40 MCHC 33.8 g/dl (32.0-35.9) 05/01/19 05:40 RDW 14.1 % (11.9-15.9) 05/01/19 05:40 Plt Count 187 K/MM3 (134-434) D 05/01/19 05:40 MPV 8.6 fl (7.5-11.1) 05/01/19 05:40 Absolute Neuts (auto) 4.9 K/mm3 (1.5-8.0) 05/01/19 05:40 Neutrophils % 64.9 % (42.8-82.8) 05/01/19 05:40 Lymphocytes % 27.1 % (8-40) 05/01/19 05:40 Monocytes % 6.1 % (3.8-10.2) 05/01/19 05:40 Eosinophils % 1.5 % (0-4.5) 05/01/19 05:40 Basophils % 0.4 % (0-2.0) 05/01/19 05:40 Nucleated RBC % 0 % (0-0) 05/01/19 05:40 PT with INR 12.20 SEC (9.7-13.0) 04/30/19 19:23 INR 1.03 (0.83-1.09) 04/30/19 19:23 Sodium 139 mmol/L (136-145) 05/01/19 05:40 Potassium 4.3 mmol/L (3.5-5.1) 05/01/19 05:40 Chloride 108 mmol/L (98-107) H 05/01/19 05:40 Carbon Dioxide 27 mmol/L (21-32) 05/01/19 05:40 Anion Gap 4 MMOL/L (8-16) L 05/01/19 05:40 BUN 21.5 mg/dL (7-18) H 05/01/19 05:40 Creatinine 0.8 mg/dL (0.55-1.3) 05/01/19 05:40 Est GFR (CKD-EPI)AfAm 99.17 05/01/19 05:40 Est GFR (CKD-EPI)NonAf 85.56 05/01/19 05:40 POC Glucometer 183 UNITS (80-120) 04/30/19 19:22 Random Glucose 99 mg/dL (74-106) 05/01/19 05:40 Lactic Acid 0.9 mmol/L (0.4-2.0) 05/01/19 03:30 Calcium 8.2 mg/dL (8.5-10.1) L 05/01/19 05:40 Magnesium 2.8 mg/dL (1.8-2.4) H 04/30/19 19:23 Total Bilirubin 0.7 mg/dL (0.2-1) 05/01/19 05:40 AST 18 U/L (15-37) 05/01/19 05:40 ALT 23 U/L (13-61) 05/01/19 05:40 Alkaline Phosphatase 57 U/L (45-117) 05/01/19 05:40 Creatine Kinase 183 U/L (26-308) 04/30/19 19:23 Creatine Kinase Index 1.2 % (0.0-5.0) 04/30/19 19:23 CK-MB (CK-2) 2.2 ng/mL (0.5-3.6) 04/30/19 19:23 Troponin I < 0.02 ng/ml (0.00-0.05) 05/01/19 03:30 B-Natriuretic Peptide 303.4 pg/ml (5-450) 04/30/19 19:23 Total Protein 6.2 g/dl (6.4-8.2) L 05/01/19 05:40 Albumin 3.1 g/dl (3.4-5.0) L 05/01/19 05:40 TSH 6.00 uIU/ml (0.358-3.74) H 04/30/19 19:23 Resin T3 Uptake 38.8 % (33-40) 05/01/19 05:40 Urine Color Yellow 04/30/19 22:20 Urine Appearance Clear 04/30/19 22:20 Urine pH 5.0 (5.0-8.0) 04/30/19 22:20 Ur Specific [place] 1.027 (1.010-1.035) 04/30/19 22:20 Urine Protein Negative (NEGATIVE) 04/30/19 22:20 Urine Glucose (UA) Negative (NEGATIVE) 04/30/19 22:20 Urine Ketones 1+ (NEGATIVE) H 04/30/19 22:20 Urine Blood Negative (NEGATIVE) 04/30/19 22:20 Urine Nitrite Negative (NEGATIVE) 04/30/19 22:20 Urine Bilirubin Negative (NEGATIVE) 04/30/19 22:20 Urine Urobilinogen 0.2 mg/dL (0.2-1.0) 04/30/19 22:20 Ur Leukocyte Esterase Negative (NEGATIVE) 04/30/19 22:20 Stool Occult Blood Negative (NEGATIVE) 04/30/19 19:23 Alcohol, Quantitative < 3.0 mg/dL (0.0-5.0) 04/30/19 19:23 Blood Type AB POSITIVE 04/30/19 21:02 Antibody Screen Negative 04/30/19 21:02 HOSPITAL COURSE: 78 y.o M PMH HTN, colon CA s/p resection presented after 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 Pt had + orthostatics, bradycardia on admission. Given 2L IVF bolus total w/ improvement of BP. ACEi held. Imaging revealed no acute pathologies on echo or carotid doppler. Presyncopal epsode likely vasovagal. Pt had sinus yg on EKG; improved w/ activity. Incidental finding of lung nodule on CT, f/u recommended in 6 months. Date of Admission:04/30/19 CXR: Questionable round opacity in the left mid to lower lung, laterally for which further evaluation is needed. The rest of the lung is clear. Carotid doppler: Mild atherosclerotic disease, right greater than left, with no evidence of hemodynamically significant stenoses. Chest CT: No evidence of pulmonary masses or acute pathology within the chest. 2. 6 mm right lower lobe nodule. Six-month CT follow-up recommended. Please see above discussion. Echo: trace pulm valve regurg. EF 55-60% Date of Discharge: 05/02/19 Minutes to complete discharge: 36 Discharge Summary Reason For Visit: ACUTE KIDNEY INJURY PRE-SYNCOPE Condition: Stable - Instructions Diet, Activity, Other Instructions: Your visit: You presented to the hospital for weakness. You were found to have very low blood pressure and a slow heart rate. You were treated with IV fluids and your blood pressure and heart rate improved. While you were here, a chest CAT scan was done which showed a lung nodule. It is recommended that you have a repeat CAT scan in 6 months. You will need to follow up this finding. You were also found to have an elevated TSH level. You will need to follow up with your primary care provider for repeat thyroid function testing and further management. Medication Changes: Please STOP taking Lisinopril, do not take it until you see your primary care doctor. Continue your other home medications as prescribed. Follow up with the following physicians: 1. Primary care provider (Dr. Bernabe) within 1 week. If you are unable to obtain an appointment please come to the clinic located at [address] to see Dr[address] Fisher at Dr [facility] clinic. Please return to the ER if you have any signs or symptoms of chest pain, shortness of breath, dizziness, nausea, vomiting, abdominal pains, diarrhea, fevers, fatigue or muscle pains. Please return to the ER if symptoms persist, worsen, or new symptoms arise. Referrals: Aicha Bernabe MD [Primary Care Provider] - 1 Week Disposition: HOME - Home Medications Comprehensive Discharge Medication List: Ambulatory Orders Pravastatin Sodium 80 mg PO DAILY 05/20/12 Aspirin [ASA -] 81 mg PO DAILY 11/10/15 Cholecalciferol (Vitamin D3) [Vitamin D3] 1 tab PO ASDIR 11/10/15 [place]-3 Fatty Acids [Fish Oil] 300 mg PO DAILY 11/10/15 This patient is new to me today: Yes Date on this admission: 05/02/19 Emergency Visit: Yes ED Registration Date: 04/30/19 Care time: The patient presented to the Emergency Department on the above date and was hospitalized for further evaluation of their emergent condition. Critical Care patient: No - Discharge Referral Referred to [facility] Med P.C.: No ATTENDING PHYSICIAN STATEMENT I saw and evaluated the patient. I reviewed the resident's note and discussed the case with the resident. I agree with the resident's findings and plan as documented. SUBJECTIVE: OBJECTIVE: ASSESSMENT AND PLAN:
== END 2019-05-01 16:26 | disposition home or self-care (01) ==
LOC: JER 18:57 → JERBED 20:56 → INTOOBSV 20:56
PROVIDERS: ADMIT Internal Medicine; ATTEND Internal Medicine
PROC: 3E033GC Introduction of Other Therapeutic Substance into Peripheral Vein, Percutaneous Approach (ICD-10-PCS; principal; 2019-04-30)
PROC: 3E0337Z Introduction of Electrolytic and Water Balance Substance into Peripheral Vein, Percutaneous Approach (ICD-10-PCS; 2019-04-30)
PROC: 3E013GC Introduction of Other Therapeutic Substance into Subcutaneous Tissue, Percutaneous Approach (ICD-10-PCS; 2019-04-30)
DX: R55 Syncope and collapse (principal); R00.1 Bradycardia, unspecified; N17.9 Acute kidney failure, unspecified; E86.0 Dehydration; R53.1 Weakness; R94.6 Abnormal results of thyroid function studies; I95.9 Hypotension, unspecified; I10 Essential (primary) hypertension; R73.03 Prediabetes; E78.5 Hyperlipidemia, unspecified; R79.89 Other specified abnormal findings of blood chemistry; Z85.038 Personal history of other malignant neoplasm of large intestine; D72.829 Elevated white blood cell count, unspecified
CPT/HCPCS: 36415; 71045-TC-FY; 71250-TC; 80053; 80307; 81003; 82272; 82550; 82553; 82962; 83605; 83735; 83880; 84436; 84443; 84479; 84484; 85025; 85610; 86850; 86900; 86901; 87040; 87086; 93005; 93010; 93306-TC; 93880-TC; 96361; 96372; 96374; 99285-25; G0378; J1644; J7030

== ENCOUNTER 2020-10-26 14:33 | Inpatient (IN) | payer BC ==
[2020-10-26 14:59] VITALS: BMI 33.2
[2020-10-26 15:49] LABS: BASO % 0.6 % (0-2.0); EOS % 3.9 % (0-4.5); HEMATOCRIT 38.4 % (35.4-49); HEMOGLOBIN 12.7 GM/dL (11.7-16.9); MCH 30.2 pg (25.7-33.7); MEAN CELL VOLUME 91.5 fl (80-96); MEAN PLT VOLUME 9.1 fl (7.5-11.1); MONO % 5.5 % (3.8-10.2); PLATELET COUNT 202 K/MM3 (134-434); RDW 13.3 % (11.9-15.9); WHITE BLOOD COUNT 9.5 K/mm3 (4.0-10.0)
[2020-10-26 16:03] LABS: CHLORIDE 106 mmol/L (98-107); SODIUM 140 mmol/L (136-145)
[2020-10-26 16:05] LABS: CALCIUM 9.3 mg/dL (8.5-10.1)
[2020-10-26] MEDS ORDERED: ACETAMINOPHEN 325 MG TABLET (FP) PO ONE (16:06)
[2020-10-26 16:07] LABS: ALBUMIN 3.6 g/dl (3.4-5.0); ANION GAP 6 MMOL/L (8-16); BLOOD UREA NITROGEN 18.9 mg/dL (7-18); CO2 28 mmol/L (21-32); GLUCOSE,RANDOM 120 mg/dL (74-106)
[2020-10-26 16:09] LABS: SGOT/AST 17 U/L (15-37); SGPT/ALT 24 U/L (13-61)
[2020-10-26 16:10] LABS: BILIRUBIN,TOTAL 0.6 mg/dL (0.2-1); TOT PROT 7.2 g/dl (6.4-8.2)
[2020-10-26] MEDS ORDERED: ACETAMINOPHEN 325 MG TABLET (FP) ONE (16:10)
[2020-10-26 16:13] LABS: ALK PHOS 72 U/L (45-117)
[2020-10-26 17:01] LABS: URINE APPEARANCE CLEAR; URINE BILIRUBIN NEGATIVE (NEGATIVE); URINE COLOR YELLOW; URINE GLUCOSE (UA) NEGATIVE (NEGATIVE); URINE KETONE NEGATIVE (NEGATIVE); URINE LEUK ESTERASE NEGATIVE (NEGATIVE); URINE NITRITE NEGATIVE (NEGATIVE); URINE PROTEIN NEGATIVE (NEGATIVE); URINE UROBILINOGEN 0.2 mg/dL (0.2-1.0)
[2020-10-26 17:36] LABS: LIPASE 1195 U/L (73-393)
[2020-10-26 18:27] LABS: CHOLESTEROL 175 mg/dL (50-200); TRIGLYCERIDES 83 mg/dL (0-150)
[2020-10-26 18:29] LABS: LDL CHOLESTEROL (ONLY SJRH) 99 mg/dL (5-100)
[2020-10-26 18:31] LABS: HDL CHOLESTEROL 57 mg/dL (40-60)
[2020-10-26] MEDS ORDERED: SODIUM CHLORIDE 0.9% 500 ML INFUS.BAG IV ONE (20:06)
[2020-10-26 20:59] LABS: LIPASE 678 U/L (73-393)
[2020-10-26] MEDS ORDERED: LACTATED RINGERS SOLUTION 1000 ML INFUS.BAG IV ONE (21:15)
[2020-10-26] MEDS ORDERED: LISINOPRIL 20 MG TABLET PO ONE (23:10)
[2020-10-26] MEDS ORDERED: PANTOPRAZOLE SODIUM 40 MG VIAL IVPUSH ONE (23:14)
[2020-10-26 23:38] LABS: INR 1.1 (0.83-1.09); PROTHROMBIN TIME (PATIENT) 13.3 SEC (9.7-13.0)
[2020-10-26 23:41] LABS: ACTIVATED PTT 28.3 SECONDS (25.2-36.5)
[2020-10-26] MEDS ORDERED: LISINOPRIL 20 MG TABLET ONE (23:55)
[2020-10-26] MEDS ORDERED: PANTOPRAZOLE SODIUM 40 MG VIAL ONE (23:55)
[2020-10-27] MEDS: LACTATED RINGERS SOLUTION 1,000 ML IV SCH ×2 (00:03→06:43)
[2020-10-27] MEDS ORDERED: ACETAMINOPHEN 1000 MG/100 ML VIAL (NON FORMULARY) IVPB PRN (00:37)
[2020-10-27 06:38] LABS: EOS % 5.8 % (0-4.5); HEMATOCRIT 35.2 % (35.4-49); HEMOGLOBIN 11.6 GM/dL (11.7-16.9); LYMPH % 23.7 % (8-40); MCH 30.2 pg (25.7-33.7); MEAN CELL VOLUME 91.4 fl (80-96); MEAN PLT VOLUME 8.9 fl (7.5-11.1); MONO % 5.5 % (3.8-10.2); PLATELET COUNT 172 K/MM3 (134-434); RBC 3.85 M/mm3 (4.00-5.60); RDW 13.4 % (11.9-15.9); WHITE BLOOD COUNT 7.3 K/mm3 (4.0-10.0)
[2020-10-27 06:47] LABS: POTASSIUM 3.7 mmol/L (3.5-5.1)
[2020-10-27 06:50] LABS: ALBUMIN 3.1 g/dl (3.4-5.0); CALCIUM 8.4 mg/dL (8.5-10.1)
[2020-10-27 06:51] LABS: BLOOD UREA NITROGEN 14.3 mg/dL (7-18)
[2020-10-27 06:52] LABS: MAGNESIUM 1.8 mg/dL (1.8-2.4)
[2020-10-27 06:55] LABS: BILIRUBIN,TOTAL 0.7 mg/dL (0.2-1); CREATININE 0.9 mg/dL (0.55-1.3); PHOSPHOROUS 3.8 mg/dL (2.5-4.9); TOT PROT 6.2 g/dl (6.4-8.2)
[2020-10-27] MEDS: PANTOPRAZOLE SODIUM 40 MG VIAL IVPUSH SCH (09:15)
[2020-10-27] MEDS: ENOXAPARIN NA (PORCINE) 40 MG/0.4 ML DISP.SYRIN SQ SCH (09:17)
[2020-10-27] MEDS ORDERED: HYDROCHLOROTHIAZIDE 25 MG TABLET (FP) PO SCH (10:00)
[2020-10-27] MEDS ORDERED: HYDROCHLOROTHIAZIDE 12.5 MG CAPSULE (FP) PO SCH (10:00)
[2020-10-27] MEDS: HYDROCHLOROTHIAZIDE 12.5 MG CAPSULE (FP) PO SCH (10:34)
[2020-10-27] MEDS: CLOPIDOGREL BISULFATE 75 MG TABLET (FP) PO SCH (10:34)
[2020-10-27] MEDS: amLODIPine BESYLATE 5 MG TABLET (FP) PO SCH (10:34)
[2020-10-27] MEDS: POLYETHYLENE GLYCOL 3350 119 GM BTL PO SCH (10:35)
[2020-10-27] MEDS ORDERED: LISINOPRIL 20 MG TABLET PO SCH (22:00)
[2020-10-28 07:01] LABS: POTASSIUM 4.3 mmol/L (3.5-5.1)
[2020-10-28 07:03] LABS: ALBUMIN 3.2 g/dl (3.4-5.0); CALCIUM 8.9 mg/dL (8.5-10.1)
[2020-10-28 07:07] LABS: CREATININE 1.1 mg/dL (0.55-1.3)
[2020-10-28 07:08] LABS: BILIRUBIN,TOTAL 1.2 mg/dL (0.2-1); TOT PROT 6.6 g/dl (6.4-8.2)
[2020-10-28 07:11] LABS: BLOOD UREA NITROGEN 12.2 mg/dL (7-18)
[2020-10-28 07:17] VITALS: TEMP 97.7
[2020-10-28 07:17] LABS: HEMATOCRIT 36.5 % (35.4-49); HEMOGLOBIN 12.2 GM/dL (11.7-16.9); MCH 30.5 pg (25.7-33.7); MCHC 33.4 g/dl (32.0-35.9); MEAN CELL VOLUME 91.3 fl (80-96); MEAN PLT VOLUME 8.7 fl (7.5-11.1); PLATELET COUNT 199 K/MM3 (134-434); RDW 13.1 % (11.9-15.9); WHITE BLOOD COUNT 7.3 K/mm3 (4.0-10.0)
[2020-10-28 09:58] VITALS: PULSE 64
[2020-10-28] MEDS: HYDROCHLOROTHIAZIDE 12.5 MG CAPSULE (FP) PO SCH (10:00)
[2020-10-28] MEDS: CLOPIDOGREL BISULFATE 75 MG TABLET (FP) PO SCH (10:00)
[2020-10-28] MEDS: ENOXAPARIN NA (PORCINE) 40 MG/0.4 ML DISP.SYRIN SQ SCH (10:00)
[2020-10-28] MEDS: amLODIPine BESYLATE 5 MG TABLET (FP) PO SCH (10:00)
[2020-10-28] MEDS: PANTOPRAZOLE SODIUM 40 MG VIAL IVPUSH SCH (10:00)
[2020-10-28] MEDS: POLYETHYLENE GLYCOL 3350 119 GM BTL PO SCH (10:00)
[2020-10-28 14:33] VITALS: BP 137/68
[2020-10-29] MEDS ORDERED: PANTOPRAZOLE 40 MG TABLET PO SCH (10:00)
== END 2020-10-28 18:24 | disposition home or self-care (01) | DRG 304 ==
LOC: JER 14:33 → JERBED 21:33 → J7W 10-27 01:40
PROVIDERS: ADMIT Internal Medicine; ATTEND Student in an Organized Health Care Education/Training Program
DX: I16.0 Hypertensive urgency (principal); K85.90 Acute pancreatitis without necrosis or infection, unspecified; I77.4 Celiac artery compression syndrome; N13.30 Unspecified hydronephrosis; I10 Essential (primary) hypertension; R51.9 Headache, unspecified; K43.9 Ventral hernia without obstruction or gangrene; E78.5 Hyperlipidemia, unspecified; I73.9 Peripheral vascular disease, unspecified; N40.1 Benign prostatic hyperplasia with lower urinary tract symptoms; R73.03 Prediabetes; E66.9 Obesity, unspecified; Z68.33 Body mass index [BMI] 33.0-33.9, adult; N28.1 Cyst of kidney, acquired; Z85.038 Personal history of other malignant neoplasm of large intestine
CPT/HCPCS: 36415; 70450-TC; 71045-TC-FY; 74178-TC; 76775-TC; 76856-TC; 80053; 80061; 81003; 83605; 83690; 83721; 83735; 84100; 84153; 84443; 84484; 85025; 85027; 85610; 85730; 87086; 93005; 93010; 99285-25; C9803; Q9967; U0003